=== PATIENT | male | born 1945 | race Caucasian/White ===

== ENCOUNTER 2019-04-02 14:15 | Emergency (ER) | payer OTHER ==
[~2019-04-02] VITALS: Ht 167.6 cm; Wt 139.6 kg
[2019-04-02 14:23] VITALS: Ht 167.6 cm; Wt 139.6 kg
--- NOTE | 2019-04-02 14:33 | ERD ---
ER Documentation Chief Complaint Chief Complaint Fainted HPI The patient is a 73-year-old male, presenting to the ER because he fainted yesterday around 5:30 PM, witnessed by his . He fainted again today at 12:30 PM, witnessed by his . He did not have any trauma, denies headache, blurred vision, neck pain, chest pain, dyspnea, abdominal pain, vomiting, dysuria, diarrhea. He denies tongue bite/fecal/urinary incontinence. He smokes and drinks Past medical history: Hypertension, anxiety, PTSD, dyslipidemia, BPH, chronic pain syndrome Past surgical history: Right inguinal herniorrhaphy, bilateral knee surgery ROS All systems reviewed and are negative except as per history of present illness. Medications Home Meds Reported Medications Lisinopril* (Lisinopril*) 2.5 Mg Tablet, 2.5 MG PO DAILY, #30 TAB 04/02/19 Quetiapine Fumarate* (Quetiapine Fumarate*) 50 Mg Tablet, 50 MG PO HS, TAB TAKE 1/2 OR 1 TAB QHS 04/02/19 Oxycodone Hcl* (IR) (Oxycodone Hcl*) 5 Mg Capsule, 15 MG PO Q6H PRN for PAIN, CAP 04/02/19 Topiramate* (Topiramate*) 100 Mg Tablet, 100 MG PO DAILY, TAB 04/02/19 Nitroglycerin* (Nitroglycerin* SL) 0.4 Mg Tab.subl, 0.4 MG SL Q5MIN PRN for CHEST PAIN, BOTTLE 04/02/19 Rosuvastatin Calcium* (Crestor*) 10 Mg Tablet, 10 MG PO QHS, #30 TAB 04/02/19 Albuterol Sulfate* (Ventolin HFA*) 18 Gm Hfa.aer.ad, 2 PUFF INHALATION Q4H, #1 I NHALER 04/02/19 Terazosin Hcl* (Terazosin Hcl*) 10 Mg Capsule, 20 MG PO HS, CAP 04/02/19 Finasteride* (Finasteride*) 5 Mg Tablet, 5 MG PO DAILY, TAB 04/02/19 Carvedilol* (Carvedilol*) 12.5 Mg Tablet, 12.5 MG PO BID, #60 TAB 04/02/19 Aspirin* (Aspirin* EC) 81 Mg Tablet.dr, 81 MG PO DAILY, TAB 04/02/19 Allergies Allergies: Coded Allergies: NSAIDS (Non-Steroidal Anti-Inflamma (Unverified Allergy, Unknown, 04/02/19) acetaminophen (Unverified Allergy, Unknown, 04/02/19) cortisone (Unverified Allergy, Unknown, 04/02/19) nortriptyline (Unverified Allergy, Unknown, 04/02/19) Physical Exam Vitals Vital Signs Date Temp Pulse Resp B/P (MAP) Pulse Ox O2 O2 Flow FiO2 Time Delivery Rate 04/02/19 98.1 62 16 146/57 99 Nasal 2.0 20:00 (86) Cannula 04/02/19 98.4 65 16 181/86 98 14:23 (117) Physical Exam Const: No acute distress. Head: Atraumatic. Eyes: Normal Conjunctiva. ENT: Normal External Ears, Nose and Mouth. Neck: Full range of motion. No meningismus. Resp: Clear to auscultation bilaterally. Cardio: Regular rate and rhythm. Abd: Soft, non distended, normal bowel sounds, non tender. Skin: No petechiae or rashes. Back: No midline or flank tenderness. Ext: No cyanosis, or edema. Neur: Awake and alert. No focal deficit Psych: Normal Mood and Affect. Result Diagram: 04/02/19 1444 04/02/19 1444 Results 24 hrs Laboratory Tests Test 04/02/19 14:42 04/02/19 14:44 04/02/19 15:14 04/02/19 16:59 Bedside Glucose 115 mg/dL White Blood Count 9.7 10^3/ul Red Blood Count 3.60 10^6/ul Hemoglobin 10.9 g/dl Hematocrit 34.6 % Mean Corpuscular 96.1 fl Volume Mean Corpuscular 30.3 pg Hemoglobin Mean Corpuscular 31.5 g/dl Hemoglobin Concent Red Cell 13.9 % Distribution Width Platelet Count 196 10^3/UL Mean Platelet Volume 9.7 fl Immature 0.500 % Granulocytes % Neutrophils % 84.1 % Lymphocytes % 5.9 % Monocytes % 6.5 % Eosinophils % 2.5 % Basophils % 0.5 % Nucleated Red Blood 0.0 /100WBC Cells % Immature 0.050 10^3/ul Granulocytes # Neutrophils # 8.1 10^3/ul Lymphocytes # 0.6 10^3/ul Monocytes # 0.6 10^3/ul Eosinophils # 0.2 10^3/ul Basophils # 0.1 10^3/ul Nucleated Red Blood 0.0 10^3/ul Cells # Sodium Level 150 mmol/L Potassium Level 4.5 mmol/L Chloride Level 94 mmol/L Carbon Dioxide Level 13 mmol/L Anion Gap 43 Blood Urea Nitrogen 14 mg/dl Creatinine 0.92 mg/dl Est Glomerular mL/min Filtrat Rate mL/min Glucose Level 98 mg/dl Calcium Level 4.6 mg/dl Troponin I < 0.012 ng/ml Albumin 3.6 g/dl D-Dimer 1206.30 ng/ml D-Dimer Comment Magnesium Level 2.2 mg/dl Current Medications Medications Dose Sig/Abhi Start Time Status Last (Trade) Ordered Route PRN Stop Time Admin Dose Reason Admin Lorazepam 0.5 mg ONCE ONCE 04/02/19 DC 04/02/19 (Ativan) IV 15:00 04/02/19 14:58 15:03 0.5 mg ONCE STAT 04/02/19 DC 04/02/19 Hydromorphone IV 14:51 04/02/19 14:58 HCl 14:53 (Dilaudid) IV Flush 10 ml STK-MED 04/02/19 DC (NS 10 ml) ONCE .ROUTE 17:08 04/02/19 17:09 Sodium 100 ml @ ud STK-MED 04/02/19 DC Chloride ONCE .ROUTE 17:08 04/02/19 17:09 Iohexol 100 ml @ ud STK-MED 04/02/19 DC ONCE .ROUTE 17:08 04/02/19 17:09 0.5 mg ONCE STAT 04/02/19 DC 04/02/19 Hydromorphone IV 17:31 04/02/19 17:50 HCl 17:32 (Dilaudid) Calcium 120 ml @ ONCE ONCE 04/02/19 DC 04/02/19 Gluconate 2 60 mls/hr IVPB 18:00 04/02/19 18:21 gm/Dextrose 19:59 Lorazepam 0.5 mg ONCE ONCE 04/02/19 DC 04/02/19 (Ativan) IV 18:00 04/02/19 17:58 18:01 Procedures/[place] [id number] Radiology Main Line: [phone] DIAGNOSTIC IMAGING REPORT Patient: HUGO WHITTINGTON : 1945 Age: 73 Sex: M MR #: [id number] [facility] #: [id number] DOS: 04/02/19 1656 Ordering MD: COBY KOROMA MD Location: E/R Room/Bed: PROCEDURE: CTA Chest. CLINICAL INDICATION: Chest pain TECHNIQUE: The study was performed utilizing a multidetector CT scanner. Direct spiral 1 mm axial sections were obtained from the thoracic inlet to the upper abdomen with the use of 100 cc of Omnipaque 350 nonionic intravenous contrast material and reformatted at 3 mm. Coronal and sagittal reformations were obtained. 3-D reconstructions were also obtained. The images were reviewed on a PACS workstation. One or more of the following dose reduction techniques were used: Automated exposure control. Adjustment of the mA and/or kV according to patient size. Use of iterative reconstruction technique. DICOM images are available DLP 715.03 mGycm CTDIvol 35.2 and 20.0 mGy COMPARISON: No prior studies are available for comparison. FINDINGS: Cardiovascular: No filling defects are seen in the pulmonary arteries with no CT evidence for pulmonary emboli. Aortic and coronary artery atherosclerotic plaque and calcification are present with no evidence of dissection. There is no cardiomegaly. Lungs: Emphysema is present within the lungs with bilateral areas of subpleural scarring. There is mild basilar atelectasis. There is no lung consolidation or pleural effusion or pneumothorax. The airways are patent. There is mild bilateral airways wall thickening. There is no suspicious nodule or mass. Mediastinum: There are no enlarged axillary or mediastinal lymph nodes. Upper abdomen: There is no acute upper abdominal abnormality. Musculoskeletal: Degenerative changes are seen within the thoracic spine and shoulders with no acute osseous abnormality. IMPRESSION: No CT evidence for pulmonary embolus or aortic dissection. Emphysema is present with mild bilateral subpleural scarring. No lung nodule or mass. Bilateral airways wall thickening is seen which could represent airways inflammation which may be chronic. Atherosclerotic disease is present. .Wilmer Street MD, Date Time Electronically viewed and signed by .Wilmer Street MD, MD on 04/02/2019 19:34 .J/ CC: COBY KOROMA MD [id number] [place] [id number] Radiology Main Line: [phone] DIAGNOSTIC IMAGING REPORT Patient: HUGO WHITTINGTON : 1945 Age: 73 Sex: M MR #: [id number] DOS: 04/02/19 1451 Ordering MD: COBY KOROMA MD Location: E/R Room/Bed: PROCEDURE: CT Brain without contrast. CLINICAL INDICATION: Syncope. TECHNIQUE: A CT of the brain without contrast was performed utilizing axial sections from the skull base through the vertex. One or more the following does reduction techniques were utilized: Automated exposure control, adjustment of the mA/ or kV according to patient's size, or use of iterative reconstruction technique. Total exam CTDIvol is 36 MGy and DLP is 634 mGy-cm. DICOM images are available. COMPARISON: None available. FINDINGS: The ventricles and sulci are mildly prominent indicative of volume loss. There is no intracranial hemorrhage, mass effect or midline shift. No abnormal intra- axial or extra-axial fluid collections are seen. The duggan/white matter differentiation is well preserved. There are mild scattered foci of hypoattenuation in the periventricular, deep, and subcortical white matter, which are nonspecific in etiology but likely reflect chronic small vessel ischemic changes. There are mild intracranial vascular calcifications consistent with atherosclerosis. Hyperostosis frontalis interna is noted. The visualized paranasal sinuses are essentially clear. IMPRESSION: 1. No acute intracranial hemorrhage, transcortical infarction or mass effect. 2. Mild intracranial atherosclerosis and chronic small vessel ischemic changes. 3. Mild generalized cerebral volume loss. RPTAT: HH .Robert Daigle MD, MD Date Time Electronically viewed and signed by .Robert Daigle MD, MD on 04/02/2019 16:48 .N/ CC: COBY KOROMA MD [id number] EKG: Read by emergency physician Rate/Rhythm: Normal Sinus Rhythm 65 beats/min QRS, ST, T-waves: No ST elevation, no T inversion, SA, 1ST AVB, LBBB, TYPE 2 2ND DEGREE BLOCK Impression: Abnormal EKG MEDICAL MAKING DECISION: The patient is a 73-year-old male, presenting with acute syncope, most likely due to cardiac etiology, acute hypocalcemia. He was treated with Ativan 0.5 mg IV x2 for acute anxiety, Dilaudid 0.5 mg IV for chronic pain, 2 g of calcium gluconate IV for acute hypoglycemia with good response. The differential diagnoses considered include but are not limited to cardiac arrhythmia, arrhythmogenic right ventricular dysplasia, Brugada syndrome, left ventricular hypertrophy, pulmonary embolism, QT abnormality, [id number]. Departure Diagnosis: Primary Impression: Syncope Additional Impressions: Atrioventricular block, Mobitz type 2 Hypocalcemia Anemia Hypernatremia Condition: Stable Comments I discussed the findings with the patient. I discussed the patient with Dr Francisco from [place] at 8:30p , who was made aware of the lab, the treatment, the patient condition. The patient is transferred via ambulance to [place] Disclaimer: Inadvertent spelling and grammatical errors are likely due to EHR/dictation software use and do not reflect on the overall quality of patient care. Also, please note that the electronic time recorded on this note does not necessarily reflect the actual time of the patient encounter. COBY KOROMA MD Apr 02, 2019 14:33
[2019-04-02] MEDS ORDERED: HYDROmorphONE 0.5 MG/0.5 ML SYG IV STA ×3 (14:51→21:58)
[2019-04-02] MEDS ORDERED: LORAZEPAM 2 MG INJ IV ONE ×2 (15:00→18:00)
[2019-04-02] MEDS ORDERED: ASPI-817 PO (15:53)
[2019-04-02] MEDS ORDERED: FINA5TAB4 PO (15:53)
[2019-04-02] MEDS ORDERED: CARV12.579 PO (15:53)
[2019-04-02] MEDS ORDERED: TERA10CA3 PO (15:55)
[2019-04-02] MEDS ORDERED: ALBU18HF INHALATION (15:57)
[2019-04-02] MEDS ORDERED: RSV10T PO (15:58)
[2019-04-02] MEDS ORDERED: NITR0.4T32 SL (15:58)
[2019-04-02] MEDS ORDERED: TOPI100T11 PO (15:59)
[2019-04-02] MEDS ORDERED: OXYC5CAP17 PO (16:00)
[2019-04-02] MEDS ORDERED: LISI2.5T59 PO (16:01)
[2019-04-02] MEDS ORDERED: QUET50TA22 PO (16:01)
[2019-04-02] MEDS ORDERED: SOD CHLORIDE 0.9% 100 ML ONE (17:08)
[2019-04-02] MEDS ORDERED: IOHEXOL 100 ML ONE (17:08)
[2019-04-02] MEDS ORDERED: CALCIUM GLUCONATE 10% 2 GM in DEXTROSE 5% 100 ML IVPB ONE (18:00)
[2019-04-02 22:00] VITALS: BP 164/90; PULSE 77; RESP 16
== END 2019-04-02 22:45 | disposition short-term general hospital (02) ==
LOC: E/R 14:15
DX: I44.1 Atrioventricular block, second degree (principal); D64.9 Anemia, unspecified; E87.0 Hyperosmolality and hypernatremia; I10 Essential (primary) hypertension; R73.9 Hyperglycemia, unspecified; Z79.82 Long term (current) use of aspirin
CPT/HCPCS: 36415; 70450; 71275; 80048; 82040; 82962; 83735; 84484; 85025; 85378; 93005; 96365; 96366; 96375; 96376; 99285; J0610; J1170; J2060; Q9967